=== PATIENT | female | born 1950 | race African-American/Black ===

== ENCOUNTER 2021-11-07 21:48 | Inpatient (IN) | payer MEDICARE ==
[2021-11-07] MEDS ORDERED: Aspirin Chewable 81 MG TAB ONE (22:13)
[2021-11-07 22:52] LABS: #Eosinphils 0.1 thou/uL (0.0-0.7); #Lymphocytes 0.9 thou/uL (1.20-3.40); #Monocytes 0.6 thou/uL (0.11-0.59); #Neutrophils 7.7 thou/uL (1.40-6.50); %Eosinophils 0.7 % (0.0-10.0); %Lymphocytes 9.2 % (21.0-51.0); %Monocytes 6.4 % (0.0-10.0); %Neutrophils 83.6 % (42.0-75.0); Hemoglobin 12.7 g/dL (12.0-16.0); Mean Corpuscular HGB CONC 33.9 g/dL (32.0-36.0); Mean Corpuscular Volume 97.6 fL (78.0-98.0); Mean Platelet Volume 7.6 fL (7.4-10.4); Platelet Count 206 thou/uL (130-400); RBC Distribution Width 12.3 % (11.5-14.5); Red Blood Cell (RBC) Count 3.84 mill/uL (4.20-5.40); White Blood Cell (WBC) Count 9.2 thou/uL (4.8-10.8)
[2021-11-07 23:15] LABS: ALT (SGPT) 11 U/L (8-55); AST (SGOT) 13 U/L (5-34); Albumin 3.9 g/dL (3.4-4.8); Alkaline Phosphatase 67 U/L (40-110); Anion Gap 15 mmol/L (10-20); BUN (Urea Nitrogen) 17 mg/dL (9.8-20.1); Bilirubin, Total 1.4 mg/dL (0.2-1.2); Calc. Creatinine Clearance 0 mL/min (70-130); Carbon Dioxide 24 mmol/L (23-31); Chloride 104 mmol/L (98-107); Estimated GFR 64; Glucose 119 mg/dL (80-115); Potassium 3.4 mmol/L (3.5-5.1); Protein, Total 6.9 g/dL (5.8-8.1); Sodium 140 mmol/L (136-145)
[2021-11-08] MEDS ORDERED: cefTRIAXone\\ROCEPHIN 1 GM VIAL ONE (01:21)
[2021-11-08] MEDS ORDERED: Acetaminophen 325 MG TAB PO PRN (01:45)
[2021-11-08] MEDS ORDERED: Ondansetron PF 4 MG/2 ML Vial IVP PRN (01:45)
[2021-11-08] MEDS ORDERED: Ondansetron ODT 4 MG TAB SL PRN (01:45)
[2021-11-08] MEDS ORDERED: Azithromycin 500 MG VIAL ONE (02:32)
[2021-11-08 02:48] LABS: SARS-CoV-2 NAA Rapid Test Not Detected (NotDetected)
[2021-11-08 03:50] VITALS: BMI 21.0
[2021-11-08] MEDS: Clopidogrel Bisulfate 75 MG TAB PO SCH (08:22)
[2021-11-08] MEDS: Aspirin 81 mg Enteric Coated Tablet PO SCH (08:22)
[2021-11-08] MEDS: Ascorbic Acid 500 mg Chewable Tablet PO SCH (08:22)
[2021-11-08] MEDS ORDERED: Losartan 25 MG TAB PO SCH (09:00)
[2021-11-08] MEDS ORDERED: Enoxaparin Sodium 40 MG/0.4 ML SYRINGE SC SCH (09:00)
[2021-11-08] MEDS ORDERED: Amlodipine 10 MG TAB PO SCH (09:00)
[2021-11-08] MEDS ORDERED: Hydrochlorothiazide 25 MG TAB PO SCH (09:00)
[2021-11-08] MEDS ORDERED: Potassium Chloride 20 MEQ TAB PO SCH (10:30)
[2021-11-08] MEDS ORDERED: Azithromycin 500 MG in Sodium Chloride 0.9% 250 ML 250 ML IVPB SCH (20:00)
[2021-11-08] MEDS: guaiFENesin ER 600 MG TAB PO SCH (20:43)
[2021-11-08] MEDS: cefTRIAXone\\ROCEPHIN 1 GM in Sodium Chloride 0.9% 100 ML IVPB SCH ×2 (20:51→22:02)
[2021-11-08] MEDS ORDERED: Temazepam 15 MG CAP PO SCH (21:00)
[2021-11-08] MEDS ORDERED: Atorvastatin Calcium 40 MG TAB PO SCH (21:00)
[2021-11-09] MEDS: Ascorbic Acid 500 mg Chewable Tablet PO SCH (09:14)
[2021-11-09] MEDS: Aspirin 81 mg Enteric Coated Tablet PO SCH (09:15)
[2021-11-09] MEDS: Clopidogrel Bisulfate 75 MG TAB PO SCH (09:15)
[2021-11-09] MEDS: guaiFENesin ER 600 MG TAB PO SCH (09:15)
[2021-11-09 12:16] VITALS: BP 112/56; TEMP 98.4
== END 2021-11-09 12:10 | disposition home health service (06) | DRG 193 ==
LOC: ERS 21:48 → SURG A 11-08 01:41
PROVIDERS: ADMIT Family Medicine; ATTEND Family Medicine
DX: J18.9 Pneumonia, unspecified organism (principal); J96.01 Acute respiratory failure with hypoxia; J44.0 Chronic obstructive pulmonary disease with (acute) lower respiratory infection; Z20.822 Contact with and (suspected) exposure to COVID-19; G89.29 Other chronic pain; M54.9 Dorsalgia, unspecified; E78.00 Pure hypercholesterolemia, unspecified; F17.210 Nicotine dependence, cigarettes, uncomplicated; Z90.710 Acquired absence of both cervix and uterus; Z88.5 Allergy status to narcotic agent; Z88.0 Allergy status to penicillin; Z79.899 Other long term (current) drug therapy; Z79.82 Long term (current) use of aspirin; Z79.02 Long term (current) use of antithrombotics/antiplatelets; Z86.73 Personal history of transient ischemic attack (TIA), and cerebral infarction without residual deficits; Z98.1 Arthrodesis status; Z98.51 Tubal ligation status; Z95.828 Presence of other vascular implants and grafts; Z82.49 Family history of ischemic heart disease and other diseases of the circulatory system; Z82.3 Family history of stroke
CPT/HCPCS: 36415; 71045; 80053; 84484; 85025; 85379; 93005; 94640; J0456; J0696; J3490; J7050; J7620; U0002

== ENCOUNTER 2023-05-22 09:00 | Day surgery (SDC) | payer MEDICARE ==
[2023-05-22] MEDS ORDERED: PROPOFOL 200 MG/20 ML VIAL ONE (11:13)
== END 2023-05-22 13:25 | disposition home or self-care (01) ==
LOC: SDC 09:00
PROVIDERS: ATTEND Internal Medicine Cardiovascular Disease
PROC: 5A2204Z Restoration of Cardiac Rhythm, Single (ICD-10-PCS; principal; 2023-05-22)
DX: I48.0 Paroxysmal atrial fibrillation (principal); I08.1 Rheumatic disorders of both mitral and tricuspid valves; I73.9 Peripheral vascular disease, unspecified; I10 Essential (primary) hypertension; E78.5 Hyperlipidemia, unspecified; F17.210 Nicotine dependence, cigarettes, uncomplicated; Z90.710 Acquired absence of both cervix and uterus; Z88.0 Allergy status to penicillin; Z88.5 Allergy status to narcotic agent; Z79.82 Long term (current) use of aspirin; Z79.899 Other long term (current) drug therapy; Z79.01 Long term (current) use of anticoagulants
CPT/HCPCS: 92960; 93005; 93010; 93312; J2704